=== PATIENT | male | born 1955 | race Hispanic/Latino ===

== ENCOUNTER 2022-06-18 19:50 | Emergency (ER) | payer MEDICARE, SELFPAY ==
--- NOTE | 2022-06-18 19:50 | DI.CT.S_ITS ---
PROCEDURE: CT STROKE INDICATIONS: altered TECHNIQUE: Noncontrast 4.5 mm thick angled axial sections acquired from the foramen magnum to the vertex, with coronal reformats. For radiation dose reduction, the following was used: automated exposure control, adjustment of mA and/or kV according to patient size. COMPARISON: None. FINDINGS: Image quality: Poor. CSF spaces: No extra-axial fluid collections. Ventricles are prominent. There are hyperdense blood products in the filling the 4th and 3rd ventricles. There is a small amount of blood products in the anterior horns of the lateral ventricles lateral ventricles. Brain: No midline shift. There is hyperdense intraparenchymal hemorrhage in the left cerebellum. Periventricular hypodensity most consistent with chronic microvascular ischemic disease. No large area of hypodensity in a vascular distribution. Skull and face: Calvarium and visualized facial bones are intact, without suspicious lesions. Sinuses: Mucosal thickening in the maxillary sinuses. Mastoids are clear. IMPRESSION: 1. Intraparenchymal blood products in the left cerebellum. Suspect hemorrhagic infarct. 2. Extensive intraventricular blood products. Comment: Findings were discussed with Abel Soto at 8:03 p.m. This study fulfills neurological imaging criteria for inclusion or exclusion of acute stroke therapies based on available published neurological imaging guidelines. Dictated by: Andrea Sanchez M.D. on 06/18/2022 at 20:01 Approved by: Andrea Sanchez M.D. on 06/18/2022 at 20:08
[2022-06-18 19:55] VITALS: PULSE 64
--- NOTE | 2022-06-18 19:55 | ED.AMS ---
HPI - Altered Mental Status General Chief Complaint: Neuro Symptoms/Deficit Stated Complaint: Stroke Time Seen by Provider: 06/18/22 19:53 History of Present Illness HPI narrative: 66-year-old male with known history of coronary artery disease, colon cancer with no report of anticoagulation presents by EMS for altered mental status for the past few hours. He had last been seen normal about 3 hours ago working on a boat in a local [employer] and was found sitting outside the boat with his head between his legs mumbling and not making sense, surrounded by vomit. EMS was activated and initial blood pressure was 210/110. He has no report of trauma. At times he is had a right fixed gaze Related Data Home Medications Medication Instructions Recorded Confirmed ciprofloxacin HCl 500 mg tablet 250 mg PO Q12H ##0 01/10/17 (Cipro) metronidazole 250 mg tablet 250 mg PO TID ##0 01/10/17 Allergies Allergy/AdvReac Type Severity Reaction Status Date / Time No Allergy Information Allergy Verified 06/18/22 20:47 Available Review of Systems Review of Systems ROS Unobtainable: Unobtainable due to mental status/LOC Exam Narrative Exam Narrative: GENERAL: [66] year old patient appears stated age. Well-developed patient, in obvious distress, moaning, unintelligible speech, occasional snoring respirations. HEAD: Atraumatic. Normocephalic. EYES: Pupils equal round and reactive. Fixed gaze, no hyphema ENT: Nose without bleeding, purulent drainage. Throat without erythema, tonsillar hypertrophy or exudate. Airway patent. NECK: Trachea midline. Non tender CARDIOVASCULAR: Regular rate and rhythm without murmurs, gallops, or rubs. RESPIRATORY: Clear to auscultation. Breath sounds equal bilaterally. No wheezes, rales, or rhonchi. GASTROINTESTINAL: Abdomen soft, non-tender, nondistended. EXTREMITIES: No edema or joint tenderness. BACK: Nontender without deformity or crepitance. No flank tenderness. NEURO: posturing, responsive to pain SKIN: No rash or erythema of visible areas Initial Vital Signs Initial Vital Signs: Vital Signs Temperature 96.4 F L 06/18/22 20:19 Pulse Rate 64 06/18/22 20:19 Blood Pressure 164/94 H 06/18/22 20:19 Pulse Oximetry 96 06/18/22 20:19 Oxygen Delivery Method 06/18/22 20:19 Procedures Central Line Placement Right IJ: Time Out Performed: Yes Patient Placed on Monitor/Pulse Ox: Yes MD Prep: mask, gown and gloves Central Line Prep: Chlorhexidine scrub and sterile drapes applied Ultrasound Used for Placement: Yes Central Line Lumen Inserted: triple Post Procedure: good blood return, all ports aspirated, flushed, capped and sterile dressing applied Intubation Time out performed: Yes sedative: Etomidate Mg Given: 24 paralytic: Rocuronium Mg Given: 50 Laryngoscope: other (Glydescope) ET Tube Size: 8 ET Tube Uncuffed: No Tube Secured Depth (cm): 24 Tube Secured Location: lips Tube Placement Confirmation: Visualized tube passing through cords, Equal breath sounds bilaterally, No breath sounds over epigastrium, Confirmation by capnometry and Chest Xray Patient Tolerated Procedure: Well Intubation Complications: none Course Orders Ordered: ED Orders 06/18/22 19:50 CT Stroke Stat Complete Blood Count AUTO DIFF Stat Comprehensive Metabolic Panel Stat Ethanol (ETOH) Stat Troponin & CK Cardiac Panel Stat Urine Drug Screen, Rapid Stat EKG-12 Lead Stat 06/18/22 20:02 PTT [Partial Thromboplastin Time] Stat Prothrombin Time INR Stat Sodium Chloride (Normal Saline 0.9%) 1,000 mls @ 150 mls/hr IV CONT SUSIE Nicardipine HCl 25 mg/ Sodium (Chloride) 250 mls @ 50 mls/hr IV TITRATE SUSIE; Protocol Propofol (Propofol) 1,000 mg in 100 mls @ 2.52 mls/hr IV TITRATE SUSIE; Protocol Sodium Chloride (Hypertonic Saline 3%) 500 mls @ 20 mls/hr IV CONT SUSIE Discontinued Medications Etomidate (Etomidate 2 Mg/Ml 10 Ml Vial) 24 mg IV NOW ONE Stop: 06/18/22 20:07 Propofol (Propofol) 1,000 mg in 100 mls @ 2.52 mls/hr IV TITRATE SUSIE; Protocol Rocuronium Dukedom (Rocuronium 100 Mg/10 Ml Vial) 50 mg IV NOW ONE Stop: 06/18/22 20:07 Consultations Consultation #1: 1800 - call to /[facility] [place] Stroke. Dr. Aguilar has reviewed images and agrees to accept patient, request CT angio if possible, blood pressure goal 160, she is aware that we are preparing to intubate. Sunny contacted, however they are unable to proceed due to smoke calls to [facility], cannot make it for 3 hours [facility] looking at fixed wing vs. rotary to [place] 2044 - [facility] will swing by to see about touching down 2101 - [facility] here Vital Signs Vital signs: Vital Signs - 8 hr 06/18/22 20:19 Temperature 96.4 F L Pulse Rate 64 Blood Pressure 164/94 H Pulse Oximetry 96 Oxygen Delivery Method Nasal Cannula MDM - Altered Mental Status Imaging Data CT scan - head: Radiologist's Impression: Close Brain CT (Signed) Call,Andrea - 06/18/22 Launch?[address] [address] [address] Scan Report Signed Patient: Juan Chou MR#: [id number] : 1955 Acct:[id number] Age/Sex: 66 / M Date of Service: 06/18/22 Loc: ED Accession Number: [id number] ?? Procedure: CT Stroke Ordering Provider: Abel Soto D.O. PROCEDURE:? CT STROKE ? INDICATIONS:? altered ? TECHNIQUE:? Noncontrast 4.5 mm thick angled axial sections acquired from the foramen magnum to the vertex, with coronal reformats.? For radiation dose reduction, the following was used:? automated exposure control, adjustment of mA and/or kV according to patient size.? ? COMPARISON:? None. ? FINDINGS:? Image quality:? Poor. ? CSF spaces:? No extra-axial fluid collections.? Ventricles are prominent.? There are hyperdense blood products in the filling the 4th and 3rd ventricles.? There is a small amount of blood products in the anterior horns of the lateral ventricles lateral ventricles.? ? Brain:? No midline shift.? There is hyperdense intraparenchymal hemorrhage in the left cerebellum.? Periventricular hypodensity most consistent with chronic microvascular ischemic disease.? No large area of hypodensity in a vascular distribution.? ? Skull and face:? Calvarium and visualized facial bones are intact, without suspicious lesions.? ? Sinuses:? Mucosal thickening in the maxillary sinuses.? Mastoids are clear. ? IMPRESSION:? 1. Intraparenchymal blood products in the left cerebellum.? Suspect hemorrhagic infarct. ? 2. Extensive intraventricular blood products. ? Comment: Findings were discussed with Abel Soto at 8:03 p.m. ? This study fulfills neurological imaging criteria for inclusion or exclusion of acute stroke therapies based on available published neurological imaging guidelines.? ? ? Dictated by: Andrea Sanchez M.D. on 06/18/2022 at 20:01 ? ? Approved by: Andrea Sanchez M.D. on 06/18/2022 at 20:08 ? Chest x-ray: Radiologist's Impression: Juan Chou??66??M??1955 ? Allergy/Adv: No Allergy Information Available (More??) Close Brain CT (Signed) Andrea Sanchez - 06/18/22 Launch?[place] [address] CT Scan Report Signed Patient: Juan Chou MR#: [id number] : 1955 Acct:[id number] Age/Sex: 66 / M Date of Service: 06/18/22 Loc: ED Accession Number: [id number] ?? Procedure: CT Stroke Ordering Provider: Abel Soto D.O. PROCEDURE:? CT STROKE ? INDICATIONS:? altered ? TECHNIQUE:? Noncontrast 4.5 mm thick angled axial sections acquired from the foramen magnum to the vertex, with coronal reformats.? For radiation dose reduction, the following was used:? automated exposure control, adjustment of mA and/or kV according to patient size.? ? COMPARISON:? None. ? FINDINGS:? Image quality:? Poor. ? CSF spaces:? No extra-axial fluid collections.? Ventricles are prominent.? There are hyperdense blood products in the filling the 4th and 3rd ventricles.? There is a small amount of blood products in the anterior horns of the lateral ventricles lateral ventricles.? ? Brain:? No midline shift.? There is hyperdense intraparenchymal hemorrhage in the left cerebellum.? Periventricular hypodensity most consistent with chronic microvascular ischemic disease.? No large area of hypodensity in a vascular distribution.? ? Skull and face:? Calvarium and visualized facial bones are intact, without suspicious lesions.? ? Sinuses:? Mucosal thickening in the maxillary sinuses.? Mastoids are clear. ? IMPRESSION:? 1. Intraparenchymal blood products in the left cerebellum.? Suspect hemorrhagic infarct. ? 2. Extensive intraventricular blood products. ? Comment: Findings were discussed with Abel Soto at 8:03 p.m. ? This study fulfills neurological imaging criteria for inclusion or exclusion of acute stroke therapies based on available published neurological imaging guidelines.? ? ? Dictated by: Andrea Sanchez M.D. on 06/18/2022 at 20:01 ? ? Approved by: Andrea Sanchez M.D. on 06/18/2022 at 20:08 ? Critical Care Time Critical Care Time Critical Care Time: Yes Total Critical Care Time: 30 Attestation: The high probability of a clinically significant, sudden or life threatening deterioration of the [NV] system(s) required my full and direct attention, intervention and personal management. The aggregate critical care time was [30] minutes. This time is in addition to time spent performing reported procedures but includes the following: [x] Data Review and interpretation [x] Patient assessment and monitoring of vital signs [x] Documentation [x] Medication orders and management Discharge Plan Departure Patient Disposition: [facility] Clinical Impression: Intraparenchymal hematoma of brain Prescriptions: No Action ciprofloxacin HCl [Cipro] 500 MG tablet 250 mg PO Q12H Qty: 0 metronidazole 250 MG tablet 250 mg PO TID Qty: 0
[2022-06-18 20:19] VITALS: BP 164/94; PULSE 64; TEMP 35.8; O2SAT 96
[2022-06-18] MEDS: propofoL 1,000 MG/100 ML VIAL 5.04 MG IV ×2 (20:20→21:00)
[2022-06-18] MEDS: ETOMIDATE 2 MG/ML 10 ML VIAL 24 MG IV (20:21)
[2022-06-18] MEDS: ROCURONIUM 100 MG/10 ML VIAL 50 MG IV (20:21)
[2022-06-18 20:25] VITALS: BP 224/90; PULSE 84; O2SAT 92
[2022-06-18] MEDS: NICARDIPINE 25 MG in SODIUM CHLORIDE 0.9% 240 ML 50 MG IV (20:36)
[2022-06-18] MEDS: SODIUM CHLORIDE 3 % 500 ML IV (20:37)
[2022-06-18 21:18] LABS: INR 1.1 (0.9-1.3); Prothrombin Time 12.2 SECONDS (10.1-12.7)
[2022-06-18 21:20] LABS: PTT Partial Thromboplastin Tim 24 SECONDS (26-36)
[2022-06-18 21:24] LABS: Alanine Aminotransferase 39 IU/L (<50); Albumin 4.1 g/dL (3.5-5.0); Albumin Globulin Ratio 1.4 (1.0-2.8); Alkaline Phosphatase 59 U/L (38-126); Aspartate Aminotransferase 29 IU/L (17-59); BUN Creatinine Ratio 20.7 (6-22); Bilirubin Total 0.4 mg/dL (0.2-1.3); Blood Urea Nitrogen 17 mg/dL (9-20); Calcium 8.9 mg/dL (8.4-10.2); Carbon Dioxide 26 mmol/L (22-32); Chloride 112 mmol/L (98-107); Creatine Kinase 56 U/L (55-170); Estimated Glomerular Filt Rate > 60 mL/min (>60); Glucose 165 mg/dL (80-110); Potassium 3.4 mmol/L (3.4-5.1); Sodium 145 mmol/L (137-145); Total Protein 7.1 g/dL (6.3-8.2)
[2022-06-18 21:25] VITALS: BP 131/80; PULSE 89; RESP 12; O2SAT 100
[2022-06-18 21:35] LABS: Troponin I < 0.012 ng/mL (0.01-0.034)
[2022-06-18 21:41] LABS: Add Manual Diff / Slide Review NO; Basophils Absolute Auto 0 /uL (0-100); Basophils Percent Auto 0.3 % (0-2); Eosinophils Absolute Auto 0 /uL (0-450); Eosinophils Percent Auto 0.2 % (2-4); Hematocrit 42.7 % (41-53); Hemoglobin 14.2 g/dL (13.5-17.5); Lymphocytes Absolute Auto 800 /uL (1100-4500); Mean Corpuscular HGB Conc 33.3 % (30-36); Mean Corpuscular Hemoglobin 30.2 PG (26-34); Mean Corpuscular Volume 90.6 fL (80-100); Monocytes Absolute Auto 500 /uL (0-900); Monocytes Percent Auto 4.5 % (3-14); Neutrophils Absolute Auto 10400 /uL (1500-7000); Platelet Count 199 X10^3/uL (150-400); Red Blood Cell Count 4.71 X10^6/uL (4.5-5.9); Red Cell Distribution Width 13.3 % (11.6-14.8); White Blood Cell Count 11.8 X10^3/uL (4.5-11.0)
--- NOTE | 2022-06-18 21:45 | PC.NURSE ---
Addendum entered by Leigha Dunn R.N. 06/18/22 22:15: unable to perform NIH due to pt's condition. Original Note: Pt arrived with EMS with [facility] 1730. Pt was working on a friends boat, friends went out to dinner, when they arrived back the pt was sitting next to the boat with his head in his hands, had vomited, however was awake and alert for EMS and c/o KHALIL. Per EMS, pt started to decompensate in the ambulance--L pupil sluggish and constricted, LUE posturing, and slurred speech, initial BP for EMS 220/115 HR 60. Arrived with 18G R PIV. [employer] was activated and failed initial weather check. Upon arrival to ED pt straight to CT. Returned to rm 1. Minimal eye opening, no verbal respone, Snoring RR, minimal responsiveness to noxious stimuli. tremulous with decerebrate posturing. Confirmed +intraparanchymal head bleed. Intubated and sedated with Etomidate and Rocuronium for RSI, 8.0 ETT 24@teeth, +BS and ETCO2 35, 18F OG placed. Placement confirmed by CXR. Propofol gtt infusing 10mcg/kg/min, vent settings 550/12/60/8. BP 227/128 and nicardipine 5mg/hr started with a goal of 160/systolic. HOB elevated to decrease ICP. IO placed in R tibia instead of humerus per Dr Soto's verbal order. Hypertonic saline 3% infusing. RIJ CL placed by Dr Soto and placement confirmed, labs drawn and all infusions transferred to central line. 16F temp barros placed. Bear hugger placed on pt for warming measure for temp 96.6. ABG drawn. Peep decreased to 5 by RT. Family was unable to be contacted. Sunny returned [place] [facility] and passed weather check and arrived in dept at 2100. Report given and care transferred. Pt's vitals printed and labeled and placed in paper chart. Pts belongings sent with pt however cell phone was left behind. Placed in pt belonging bag with sticker and placed in locked lost and found bin in ED.
[2022-06-18 21:48] LABS: Ethanol (ETOH) < 10 mg/dL; HEMOLYSIS 20 (0-50)
[2022-06-18 22:42] LABS: COVID19 -Nasal RAPID Negative (Negative)
[2022-06-18 22:54] LABS: Fractionated Inspired Oxygen 100; HCO3 ABG 28 mmol/L (22-26); Oxygen Saturation ABG 100 % (95-100); PCO2 ABG 50.2 mmHg (35-45); TCO2 ABG 29 mmol/L (21-31); pH ABG 7.35 (7.35-7.45)
[2022-06-18 22:55] LABS: PO2 ABG 418 mmHg (80-100)
== END 2022-06-18 21:00 | disposition short-term general hospital (02) ==
PROVIDERS: Emergency Provider Emergency Medicine
DX: I61.8 Other nontraumatic intracerebral hemorrhage (principal); Z20.822 Contact with and (suspected) exposure to COVID-19
CPT/HCPCS: 31500; 36415; 36569; 36600; 70450; 80053; 80320; 82550; 82805; 84484; 85025; 85610; 85730; 87635; 94002; 94799; 96365; 99285; 99291; 99292; C9803; J2704